=== PATIENT | female | born 1970 | race Asian ===

== ENCOUNTER → 2016-12-30 | Outpatient (CLI) | payer BC ==
--- NOTE | ~2016-12-30 | MY11 ---
[facility] A Service of [facility] RADIOLOGY TEXT RESULTS PATIENT: DONNA NEELY LOCATION: [facility] : 72 UNIT #: [id number] AGE: [address]: Trudy Neely MD SEX: F ORDER DR: [id number] [address] [address] [id number] O MR#: [id number] Acc #: [id number] NAME: DONNA NEELY : 1970 SEX: F STUDY DATE/TIME: 12/30/2016 9:10 UNIT: [facility] ROOM: STUDY DESCRIPTION: MY Mammogram Screening Dig Luis Armando Attending Physician: Trudy Neely M.D. Referring Physician: Trudy Neely M.D. Ordering Physician: Trudy Neely M.D. Primary Care Physician: Trudy Neely M.D. MEDICAL IMAGING REPORT This report is preliminary unless electronic signature is present. EXAM Digital screening mammogram 12/30/2016 [facility] HISTORY 46-year-old woman no risk elevation. Previous excision left axillary location. Annual screen. COMPARISON Mammograms date to 05/15/2009 with most recent 12/25/2015 FINDINGS Digital imaging of each breast was completed utilizing a two-view examination of each breast in craniocaudal and mediolateral-oblique projections. Review and interpretation of digital mammograms include a second review in conjunction with FDA-approved CAD device. There is a normal parenchymal presentation bilaterally consistent with the patient's age. There are no breast masses imaged and no parenchymal asymmetry is visualized. There are no suspicious microcalcifications and I see no focal architectural disturbance. IMPRESSION Negative screening digital mammogram. One-year followup recommended. Patients over the age of 40 are entered into a reminder system with target due date for the next mammogram. A result letter will also be sent to the patient. BIRADS: 1 Negative [facility] A Service of [facility] RADIOLOGY TEXT RESULTS PATIENT: DONNA NEELY LOCATION: [facility] : 72 UNIT #: [id number] AGE: [address]: Trudy Neely MD SEX: F ORDER DR: Dictated by... Daniel Jean M.D. THIS IS AN ELECTRONICALLY VERIFIED REPORT Daniel Jean M.D. at 12/30/2016 2:39 PM GARCIA/tata TD: 12/30/2016 14:00 JOB #: [id number] MEDICAL IMAGING REPORT Page 1 of 1
== END | disposition home or self-care (01) ==
LOC: SMAM 08:11
DX: Z12.31 Encounter for screening mammogram for malignant neoplasm of breast (principal)
CPT/HCPCS: G0202